=== PATIENT | male | born 1980 | race Two or more races ===

== ENCOUNTER 2017-10-08 04:36 | Emergency (ER) | payer MEDICAID ==
[2017-10-08] MEDS ORDERED: NS 1,000 ML IV ONE (04:41)
[2017-10-08] MEDS ORDERED: LORazepam 2 MG/ML INJ IVP ONE (04:41)
[2017-10-08 04:44] VITALS: TEMP 98.4
--- NOTE | 2017-10-08 04:44 | EDPHY ---
H & P Time Seen by Provider: 10/08/17 04:41 HPI/ROS: Chief Complaint: Nausea, vomiting, alcohol withdrawal HPI: 37-year-old male [facility] with withdrawal symptoms, nausea and vomiting. Patient has not been able to tolerate his Librium at the [facility]. Denies abdominal pain. No fevers or chills. No diarrhea or constipation. Patient's last drink of alcohol was yesterday. He has been in the [facility] since that time. No chest pain or shortness of breath. No history of any abdominal surgeries. He has never had an alcohol withdrawal seizure. ROS: 10 point Review of Systems is negative except as noted in the HPI. PMH: Denies Social History: Positive smoking, daily heavy alcohol, daily heavy marijuana Family History: non-contributory Physical Exam: Gen: Awake, Alert, tremulous HEENT: Nose: no rhinorrhea Eyes: PERRLA, EOMI Mouth: Moist mucosa Neck: Supple, no JVD Chest: nontender, lungs clear to auscultation Heart: S1, S2 normal, no murmur Abd: Soft, non-tender, no guarding Back: no CVA tenderness, no midline tenderness Ext: no edema, non-tender Skin: no rash Neuro: CN II-XII intact, Sensation grossly intact, Strength 5/5 in bilateral upper and lower extremities Constitutional: Initial Vital Signs Temperature (C) 36.9 C 10/08/17 04:40 Heart Rate 112 H 10/08/17 04:40 Respiratory Rate 18 10/08/17 04:40 Blood Pressure 168/97 H 10/08/17 04:40 O2 Sat (%) 92 10/08/17 04:40 O2 Delivery Mode Room Air O2 (L/minute) 2 Allergies/Adverse Reactions: No Known Allergies Allergy (Unverified 10/08/17 04:44) Home Medications: Medication Instructions Recorded NK [No Known Home Meds] 10/08/17 Medical Decision Making ED Course/Re-evaluation: 30-year-old coming with nausea vomiting from the [facility]. He has been given Ativan here with significant relief. He is also Zofran and fluids. He is tolerating p.o.. No further vomiting. His withdrawal symptoms have improved. Abdomen 9. Discharge back to the [facility] continue with Librium. He does have some elevation in his transaminases and a mildly elevated lipase. These are all consistent with alcoholic liver disease. I have encouraged him to continue drinking alcohol. - Data Points Laboratory Results: Laboratory Results 10/08/17 04:30 10/08/17 04:30 10/08/17 10/08/17 04:30 04:30 WBC 9.77 10^3/uL H 10^3/uL (3.80-9.50) RBC 5.28 10^6/uL 10^6/uL (4.40-6.38) Hgb 17.5 g/dL g/dL (13.7-17.5) Hct 49.6 % % (40.0-51.0) MCV 93.9 fL fL (81.5-99.8) MCH 33.1 pg pg (27.9-34.1) MCHC 35.3 g/dL g/dL (32.4-36.7) RDW 17.5 % H % (11.5-15.2) Plt Count 164 10^3/uL 10^3/uL (150-400) MPV 11.3 fL fL (8.7-11.7) Neut % (Auto) 77.7 % H % (39.3-74.2) Lymph % (Auto) 10.6 % L % (15.0-45.0) Kay % (Auto) 10.5 % % (4.5-13.0) Eos % (Auto) 0.0 % L % (0.6-7.6) Baso % (Auto) 0.7 % % (0.3-1.7) Nucleat RBC Rel Count 0.0 % % (0.0-0.2) Absolute Neuts (auto) 7.58 10^3/uL H 10^3/uL (1.70-6.50) Absolute Lymphs (auto) 1.04 10^3/uL 10^3/uL (1.00-3.00) Absolute Monos (auto) 1.03 10^3/uL H 10^3/uL (0.30-0.80) Absolute Eos (auto) 0.00 10^3/uL L 10^3/uL (0.03-0.40) Absolute Basos (auto) 0.07 10^3/uL 10^3/uL (0.02-0.10) Absolute Nucleated RBC 0.00 10^3/uL 10^3/uL (0-0.01) Immature Gran % 0.5 % % (0.0-1.1) Immature Gran # 0.05 10^3/uL 10^3/uL (0.00-0.10) Sodium 147 mEq/L H mEq/L (134-144) Potassium 4.1 mEq/L mEq/L (3.5-5.2) Chloride 94 mEq/L L mEq/L (97-110) Carbon Dioxide 26 mEq/l mEq/l (22-31) Anion Gap 27 mEq/L H mEq/L (8-16) BUN 6 mg/dL L mg/dL (7-23) Creatinine 0.8 mg/dL mg/dL (0.7-1.3) Estimated GFR > 60 Glucose 98 mg/dL mg/dL (70-100) Calcium 10.0 mg/dL mg/dL (8.5-10.4) Total Bilirubin 3.0 mg/dL H mg/dL (0.1-1.4) Conjugated Bilirubin 1.7 mg/dL H mg/dL (0.0-0.5) Unconjugated Bilirubin 1.3 mg/dL H mg/dL (0.0-1.1) AST 521 IU/L H IU/L (17-59) ALT 243 IU/L H IU/L (21-72) Alkaline Phosphatase 220 IU/L H IU/L (38-126) Total Protein 8.4 g/dL H g/dL (6.3-8.2) Albumin 5.2 g/dL H g/dL (3.5-5.0) Lipase 679 IU/L H IU/L (23-300) Medications Given: Discontinued Medications Chlordiazepoxide HCl (Librium) 25 mg PO EDNOW ONE Stop: 10/08/17 05:59 Last Admin: 10/08/17 06:18 Dose: 25 mg Sodium Chloride (Ns) 1,000 mls @ 0 mls/hr IV ONCE ONE; Wide Open PRN Reason: Protocol Stop: 10/08/17 04:42 Last Admin: 10/08/17 04:52 Dose: 1,000 mls Lorazepam (Ativan Injection) 2 mg IVP EDNOW ONE Stop: 10/08/17 04:42 Last Admin: 10/08/17 04:51 Dose: 2 mg Departure - Departure Disposition: Home, Routine, Self-Care Clinical Impression: Alcohol withdrawal, Vomiting Condition: Good Instructions: Acute Nausea and Vomiting (ED), Alcohol Withdrawal (ED), Chlordiazepoxide (By mouth) Additional Instructions: Please seek help to stop drinking alcohol. Return to the emergency depart for worsening nausea vomiting, fevers or chills, worsening withdrawal symptoms, or any concerns. Follow up with primary care physician further evaluation of your abnormal liver function tests. Referrals: Rosario Culver MD [[facility] [place] Primary Care Provider] - As per Instructions
[2017-10-08 04:56] LABS: PLATELET COUNT 164 10^3/uL (150-400)
[2017-10-08 05:32] VITALS: O2SAT 96
[2017-10-08] MEDS ORDERED: chlordiazePOXIDE 25 MG CAP PO ONE (05:58)
[2017-10-08] MEDS ORDERED: CHLORDIAZEPOXIDE 25MG PREPK#6 BTL TAKEHOME ONE (06:29)
[2017-10-08 07:57] VITALS: BP 135/80; PULSE 85; RESP 16
== END 2017-10-08 07:57 | disposition home or self-care (01) ==
DX: F10.239 Alcohol dependence with withdrawal, unspecified (principal); F17.200 Nicotine dependence, unspecified, uncomplicated; E86.9 Volume depletion, unspecified
CPT/HCPCS: 96374; J2060